=== PATIENT | female | born 1995 | race Caucasian/White ===

== ENCOUNTER 2016-10-17 13:36 | Emergency (ER) | payer MEDICAID ==
[~2016-10-17] VITALS: Ht 162.6 cm; Wt 54.8 kg
[~2016-10-17 13:36] MED LIST: DOCU-30 PO; IBUP-1222 PO; OXYC-302 PO; PREN1TAB27 PO
[2016-10-17 14:47] LABS: BLOOD UREA NITROGEN 10 mg/dL (7-18)
[2016-10-17] MEDS ORDERED: OMNIPAQUE 350 MG/ML, 100ML BOTTLE ONE (18:22)
[2016-10-17 19:05] VITALS: BP 121/61
== END 2016-10-17 19:07 | disposition home or self-care (01) ==
LOC: ED 14:32
DX: R06.00 Dyspnea, unspecified (principal)
CPT/HCPCS: 36415; 71020; 71275; 80048; 82040; 84703; 85025; 85379; 93005; 99285; Q9967

== ENCOUNTER 2017-04-08 06:12 | Inpatient (IN) | payer MEDICAID ==
[2017-04-08] VITALS (12 sets, daily range): BP systolic 100–123; BP diastolic 54–82
[~2017-04-08] VITALS: Ht 167.6 cm; Wt 65.0 kg
[~2017-04-08 06:12] MED LIST changes: +DOCU-131 PO; -DOCU-30 PO
[2017-04-08] MEDS ORDERED: OXYTOCIN 30U/ 0.9% NaCL 500ML 500 ML IV SCH (06:31)
[2017-04-08] MEDS ORDERED: LACTATED RINGERS 1,000 ML IV SCH ×3 (06:31→12:04)
[2017-04-08] MEDS ORDERED: NEWBORN KIT ONE (06:32)
[2017-04-08] MEDS ORDERED: METOCLOPRAMIDE 5 MG/ML, 2ML ONE (06:32)
[2017-04-08] MEDS ORDERED: OXYTOCIN 30U/ 0.9% NaCL 500ML 500 ML ONE (06:32)
[2017-04-08] MEDS ORDERED: SODIUM CITRATE/CITRIC ACID 30 ML UDC ONE ×2 (06:32→06:33)
[2017-04-08 06:37] LABS: DAU SCREEN DISCLAIMER
[2017-04-08] MEDS ORDERED: LACTATED RINGERS 1,000 ML IVBOLUS ONE (07:00)
[2017-04-08] MEDS ORDERED: METOCLOPRAMIDE 5 MG/ML, 2ML IV ONE (07:00)
[2017-04-08] MEDS ORDERED: SODIUM CITRATE/CITRIC ACID 30 ML UDC PO ONE (07:00)
[2017-04-08] MEDS ORDERED: PREN1TAB60 PO (07:17)
[2017-04-08 07:36] LABS: HEMOGLOBIN 7.3 g/dL (11.7-16.4); WHITE BLOOD COUNT 5.9 x10^3/uL (4.5-13.2)
[2017-04-08 07:43] LABS: HEMATOCRIT 22.2 % (34.6-47.8)
[2017-04-08 07:54] LABS: ANISOCYTOSIS 1+; MICROCYTOSIS 2+
[2017-04-08 07:55] LABS: HYPOCHROMIA 1+; POLYCHROMASIA 1+
[2017-04-08 07:56] LABS: OVALOCYTES 1+
[2017-04-08] MEDS ORDERED: SODIUM CHLORIDE 0.9% 1,000 ML IV SCH (09:00)
[2017-04-08] MEDS ORDERED: DIPHENHYDRAMINE 50 MG/ML, 1ML ONE (09:08)
[2017-04-08] MEDS ORDERED: ACETAMINOPHEN 325 MG TABLET ONE ×2 (09:09→15:00)
[2017-04-08] MEDS ORDERED: ACETAMINOPHEN 325 MG TABLET PO ONE (09:30)
[2017-04-08] MEDS ORDERED: DIPHENHYDRAMINE 50 MG/ML, 1ML IVPush ONE (09:30)
[2017-04-08] MEDS ORDERED: FENTANYL PF 100 MCG/2ML ONE ×3 (09:43→13:41)
[2017-04-08] MEDS ORDERED: FENTANYL PF 100 MCG/2ML IVPush PRN (10:00)
[2017-04-08] MEDS ORDERED: ONDANSETRON 2MG/ML, 2ML ONE (10:19)
[2017-04-08] MEDS ORDERED: OXYTOCIN 10 UNITS/ML, 1ML ONE (10:19)
[2017-04-08] MEDS ORDERED: CEFAZOLIN 1,000 MG ONE (10:19)
[2017-04-08] MEDS ORDERED: HYDROmorphone 2 MG/ML, 1ML ONE (10:20)
[2017-04-08] MEDS: OXYTOCIN 30U/ 0.9% NaCL 500ML 500 ML IV SCH ×2 (12:04→22:04)
[2017-04-08] MEDS: LACTATED RINGERS 1,000 ML IV SCH ×2 (12:04→20:41)
[2017-04-08] MEDS ORDERED: DOCUSATE 100 MG CAPSULE PO PRN (12:30)
[2017-04-08] MEDS ORDERED: SIMETHICONE 80 MG CHEW TAB PO PRN (12:30)
[2017-04-08] MEDS ORDERED: FENTANYL PF 100 MCG/2ML IV PRN (12:30)
[2017-04-08] MEDS ORDERED: BISACODYL 10 MG SUPP PR PRN (12:30)
[2017-04-08] MEDS ORDERED: OXYcodone 5 MG/5 ML ORAL.SOL UDC PO PRN (12:30)
[2017-04-08] MEDS ORDERED: METHYLERGONOVINE 0.2 MG/ML IM PRN (12:30)
[2017-04-08] MEDS ORDERED: OXYcodone IR 5MG TABLET PO PRN (12:30)
[2017-04-08] MEDS: ACETAMINOPHEN 325 MG TABLET PO SCH ×3 (12:30→20:41)
[2017-04-08] MEDS ORDERED: ONDANSETRON 2MG/ML, 2ML IV PRN (12:30)
[2017-04-08] MEDS ORDERED: morphine SULFATE 10 MG/ML, 1ML IVPush PRN ×2 (12:30)
[2017-04-08] MEDS ORDERED: MISOPROSTOL 200 MCG TABLET PR PRN (12:30)
[2017-04-08] MEDS ORDERED: CALCIUM CARBONATE 500 MG TAB.CHEW PO PRN (12:30)
[2017-04-08] MEDS ORDERED: OXYcodone 5 MG/5 ML ORAL.SOL UDC ONE (12:31)
[2017-04-08] MEDS ORDERED: KETOROLAC 30 MG/1 ML ONE (12:32)
[2017-04-08] MEDS: KETOROLAC 30 MG/1 ML IV SCH ×2 (12:34→20:41)
[2017-04-08] MEDS ORDERED: OXYcodone IR 5MG TABLET ONE (16:02)
[2017-04-08] MEDS: OXYcodone IR 5MG TABLET PO PRN ×2 (16:04→20:42)
[2017-04-08 16:15] LABS: HEMATOCRIT 27.2 % (34.6-47.8); HEMOGLOBIN 8.8 g/dL (11.7-16.4); WHITE BLOOD COUNT 14.3 x10^3/uL (4.5-13.2)
[2017-04-08 16:56] LABS: ANISOCYTOSIS 2+; MICROCYTOSIS 2+
[2017-04-08 16:57] LABS: HYPOCHROMIA 1+; OVALOCYTES 1+; POLYCHROMASIA 1+
[2017-04-08 16:58] LABS: LARGE PLATELETS 1+
[2017-04-09 00:09] VITALS: BP 104/51
[2017-04-09] MEDS: OXYcodone IR 5MG TABLET PO PRN ×5 (01:09→22:00)
[2017-04-09 02:01] VITALS: BP 99/57
[2017-04-09] MEDS: KETOROLAC 30 MG/1 ML IV SCH ×2 (04:15→10:23)
[2017-04-09] MEDS: ACETAMINOPHEN 325 MG TABLET PO SCH ×4 (04:15→23:20)
[2017-04-09 04:25] VITALS: BP 100/55
[2017-04-09] MEDS: LACTATED RINGERS 1,000 ML IV SCH ×2 (05:21→15:28)
[2017-04-09 05:41] LABS: HEMATOCRIT 25.2 % (34.6-47.8); HEMOGLOBIN 8.2 g/dL (11.7-16.4); WHITE BLOOD COUNT 9.1 x10^3/uL (4.5-13.2)
[2017-04-09 06:50] VITALS: BP 99/68
[2017-04-09] MEDS: OXYTOCIN 30U/ 0.9% NaCL 500ML 500 ML IV SCH (07:36)
[2017-04-09] MEDS: PRENATAL VIT/IRON/FA 1 EACH TABLET PO SCH (07:47)
[2017-04-09] MEDS: IBUPROFEN 600 MG TABLET PO SCH ×2 (12:58→17:29)
[2017-04-09 15:59] VITALS: BP 107/67
[2017-04-09] MEDS: FERROUS GLUCONATE 324 MG TABLET PO SCH (17:29)
[2017-04-09 18:30] VITALS: BP 105/65
[2017-04-10] MEDS: IBUPROFEN 600 MG TABLET PO SCH ×2 (00:57→06:13)
[2017-04-10 01:25] VITALS: BP 109/69
[2017-04-10] MEDS: OXYcodone IR 5MG TABLET PO PRN ×2 (02:14→06:13)
[2017-04-10] MEDS: LACTATED RINGERS 1,000 ML IV SCH (04:04)
[2017-04-10] MEDS: ACETAMINOPHEN 325 MG TABLET PO SCH (05:17)
[2017-04-10] MEDS: FERROUS GLUCONATE 324 MG TABLET PO SCH (08:14)
[2017-04-10] MEDS: PRENATAL VIT/IRON/FA 1 EACH TABLET PO SCH (08:14)
[2017-04-10 08:35] VITALS: BP 114/70
[2017-04-10] MEDS ORDERED: IBUP-1222 PO (10:23)
[2017-04-10] MEDS ORDERED: DOCU-131 PO (10:24)
[2017-04-10] MEDS ORDERED: OXYC-302 PO (10:26)
[2017-04-10] MEDS ORDERED: FERR324T8 PO (10:28)
[2017-04-10 10:44] VITALS: BP 119/79
== END 2017-04-10 11:06 | disposition home or self-care (01) | DRG 766 ==
LOC: LDOP 06:12 → LDIP 06:36 → 4NOR 17:45
PROVIDERS: ADMIT Obstetrics & Gynecology; ATTEND Obstetrics & Gynecology
PROC: 10D00Z1 Extraction of Products of Conception, Low, Open Approach (ICD-10-PCS; principal; 2017-04-08)
PROC: 30233N1 Transfusion of Nonautologous Red Blood Cells into Peripheral Vein, Percutaneous Approach (ICD-10-PCS; 2017-04-08)
DX: O34.211 Maternal care for low transverse scar from previous cesarean delivery (principal); D50.9 Iron deficiency anemia, unspecified; O99.344 Other mental disorders complicating childbirth; O99.02 Anemia complicating childbirth; F31.9 Bipolar disorder, unspecified; Z3A.38 38 weeks gestation of pregnancy; Z80.8 Family history of malignant neoplasm of other organs or systems; Z37.0 Single live birth; Z82.49 Family history of ischemic heart disease and other diseases of the circulatory system
CPT/HCPCS: 36415; 80307; 81001; 85025; 86850; 86870; 86900; 86922; 86923; 87077; 87086; 87186; 88307; J0690; J1170; J1885; J2405; J3010; G0479; J1200; J2590; J2765; J7030; J7120; P9016

== ENCOUNTER 2018-11-11 04:29 | Emergency (ER) | payer MEDICAID ==
[~2018-11-11] VITALS: Ht 162.6 cm; Wt 70.5 kg
[~2018-11-11 04:29] MED LIST changes: +FERR324T8 PO; +PREN1TAB60 PO
[2018-11-11] MEDS ORDERED: ACETAMINOPHEN 325 MG TABLET ONE (04:51)
--- NOTE | 2018-11-11 04:57 | NUR ---
PT HERE FOR GRAVES, SORE THROAT AND INSOMNIA. VSS. PT MEDICATED WITH TYLENOL. WAITING FOR LABS TO RESULT. CALL LIGHT IN REACH
[2018-11-11] MEDS ORDERED: ACETAMINOPHEN 325 MG TABLET PO ONE (05:00)
--- NOTE | 2018-11-11 06:16 | NUR ---
Patient given discharge instructions and they have confirmed that they understand the instructions. Patient ambulatory with steady gait.
[2018-11-11 06:17] VITALS: BP 101/72
== END 2018-11-11 06:19 | disposition home or self-care (01) ==
LOC: ED 05:13
DX: J02.8 Acute pharyngitis due to other specified organisms (principal); B97.89 Other viral agents as the cause of diseases classified elsewhere
CPT/HCPCS: 36415; 86308; 87081; 87880; 99283

== ENCOUNTER 2019-07-09 14:18 | Emergency (ER) | payer MEDICAID ==
--- NOTE | 2019-07-09 14:39 | NUR ---
TASK RN: PER BOAT MASTER CAM Lion, PT WAS CALLED FOR TRIAGE 2 TIMES PRIOR TO BEING CALLED AT THIS TIME. NO ANSWER.
== END 2019-07-09 14:46 | disposition left against medical advice (07) ==
LOC: ED 14:40
DX: R10.2 Pelvic and perineal pain (principal); Z53.21 Procedure and treatment not carried out due to patient leaving prior to being seen by health care provider

== ENCOUNTER 2019-10-28 18:34 | Emergency (ER) | payer MEDICAID, OTHER ==
[~2019-10-28] VITALS: Ht 162.6 cm; Wt 68.1 kg
[2019-10-28] MEDS ORDERED: ONDANSETRON 2MG/ML, 2ML ONE (19:20)
[2019-10-28] MEDS ORDERED: MORPHINE SULFATE 4 MG/ML, 1ML ONE ×2 (19:21→20:43)
[2019-10-28] MEDS: MORPHINE SULFATE 4 MG/ML, 1ML IVPush PRN ×2 (19:22→20:45)
[2019-10-28 19:27] LABS: BASOPHILS # (AUTO) 0.03 x10^3/uL (0-0.1); BASOPHILS % (AUTO) 0 % (0-1); EOSINOPHILS # (AUTO) 0.07 x10^3/uL (0-0.4); EOSINOPHILS % (AUTO) 1 % (1-7); LYMPHOCYTES # (AUTO) 2.38 x10^3/uL (1-3.4); LYMPHOCYTES % (AUTO) 30 % (22-44); MD NO; MEAN CORPUSCULAR HEMOGLOBIN 23.1 pg (27.0-34.8); MEAN CORPUSCULAR HGB CONC 32.1 g/dL (32.4-35.8); MEAN CORPUSCULAR VOLUME 71.8 fL (80-100); MEAN PLATELET VOLUME 8.8 fL (7.4-10.4); MONOCYTES # (AUTO) 0.55 x10^3/uL (0.2-0.8); MONOCYTES % (AUTO) 7 % (2-9); NEUTROPHILS # (AUTO) 4.84 x10^3/uL (1.8-6.8); NEUTROPHILS % (AUTO) 62 % (42-75); PLATELET COUNT 294 x10^3/uL (130-400); RED BLOOD COUNT 4.96 x10^6/uL (3.82-5.3); RED CELL DISTRIBUTION WIDTH 16.2 % (9.6-15.2)
[2019-10-28] MEDS ORDERED: ONDANSETRON 2MG/ML, 2ML IVPush ONE (19:30)
[2019-10-28] MEDS ORDERED: SODIUM CHLORIDE FLUSH 10ML SYR IVF ONE (19:30)
[2019-10-28 19:31] LABS: ANION GAP 4 mmol/L (5-15); CHLORIDE 109 mmol/L (98-107)
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
[2019-10-28] MEDS ORDERED: OMNIPAQUE 350 MG/ML, 100ML BOTTLE ONE (20:30)
--- NOTE | 2019-10-28 20:51 | NUR ---
C SPINE IMMOBILIZER REMOVED BY PROVIDER.
[2019-10-28 21:49] VITALS: BP 106/64
== END 2019-10-28 22:44 | disposition home or self-care (01) ==
LOC: ED 19:47
DX: S06.0X1A Concussion with loss of consciousness of 30 minutes or less, initial encounter (principal); S16.1XXA Strain of muscle, fascia and tendon at neck level, initial encounter; S39.012A Strain of muscle, fascia and tendon of lower back, initial encounter; S20.212A Contusion of left front wall of thorax, initial encounter; S20.211A Contusion of right front wall of thorax, initial encounter; S80.01XA Contusion of right knee, initial encounter; S00.31XA Abrasion of nose, initial encounter; S00.81XA Abrasion of other part of head, initial encounter; S20.112A Abrasion of breast, left breast, initial encounter; V47.0XXA Car driver injured in collision with fixed or stationary object in nontraffic accident, initial encounter; W22.10XA Striking against or struck by unspecified automobile airbag, initial encounter; Y93.89 Activity, other specified; Y92.488 Other paved roadways as the place of occurrence of the external cause; Y99.8 Other external cause status
CPT/HCPCS: 36415; 70450; 70486; 71045; 71260; 72072; 72110; 72125; 73564; 74177; 80048; 82040; 84703; 85025; 96374; 96375; 96376; 99285; J2270; J2405; Q9967

== ENCOUNTER 2020-02-28 19:08 | Emergency (ER) | payer MEDICAID, OTHER ==
[~2020-02-28] VITALS: Ht 165.1 cm; Wt 65.3 kg
[2020-02-28 19:36] VITALS: BP 131/81
--- NOTE | 2020-02-28 19:39 | NUR ---
PROGRAM MEDICAL DIRECTOR: PT PROVIDED WITH URINE CUP AND INSTRUCTED ON HOW TO OBTAIN A SPECIMEN.
--- NOTE | 2020-02-28 19:44 | NUR ---
SEWAGE PLANT ATTENDANT: URINE SAMPLE PROVIDED, LABELED AND SENT TO LAB
[2020-02-28 20:23] LABS: MICROSCOPIC INDICATED
[2020-02-28 20:32] LABS: BASOPHILS % (AUTO) 1 % (0-1); EOSINOPHILS % (AUTO) 0 % (1-7); LYMPHOCYTES % (AUTO) 38 % (22-44); MEAN CORPUSCULAR HEMOGLOBIN 23.9 pg (27.0-34.8); MEAN CORPUSCULAR HGB CONC 31.5 g/dL (32.4-35.8); MEAN PLATELET VOLUME 9.3 fL (7.4-10.4); MONOCYTES % (AUTO) 7 % (2-9); NEUTROPHILS % (AUTO) 55 % (42-75); PLATELET COUNT 242 x10^3/uL (130-400); RED CELL DISTRIBUTION WIDTH 18.1 % (9.6-15.2)
[2020-02-28 20:35] LABS: MD NO
[2020-02-28 20:41] LABS: ALBUMIN 4.3 g/dL (3.4-5.0); ANION GAP 4 mmol/L (5-15); CALCIUM 9.5 mg/dL (8.5-10.1); CHLORIDE 107 mmol/L (98-107)
--- NOTE | 2020-02-28 21:50 | NUR ---
REPORT GIVEN TO ANDREIA MARIE.
[2020-02-28 21:52] LABS: CLUE CELLS NONE SEEN (NONE SEEN); WET PREP WBCS FEW (FEW)
[2020-02-28] MEDS ORDERED: metroNIDAZOLE 500 MG TABLET PO ONE (22:00)
[2020-02-28] MEDS ORDERED: CEFTRIAXONE 250 MG IM ONE (22:00)
[2020-02-28] MEDS ORDERED: AZITHROMYCIN 500 MG TABLET ONE (22:00)
[2020-02-28] MEDS ORDERED: metroNIDAZOLE 500 MG TABLET ONE (22:00)
[2020-02-28] MEDS ORDERED: AZITHROMYCIN 500 MG TABLET PO ONE (22:00)
[2020-02-28] MEDS ORDERED: LIDOCAINE-MPF 1%, 2ML ONE (22:01)
[2020-02-28] MEDS ORDERED: CEFTRIAXONE 250 MG ONE (22:01)
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
== END 2020-02-28 22:20 | disposition left against medical advice (07) ==
LOC: ED 21:50
DX: A59.01 Trichomonal vulvovaginitis (principal); R10.2 Pelvic and perineal pain; R10.31 Right lower quadrant pain; R10.32 Left lower quadrant pain
CPT/HCPCS: 36415; 76830; 80048; 81001; 82040; 84703; 85025; 87086; 87210; 87491; 87591; 87808; 96372; 99284; J0696

== ENCOUNTER 2020-03-11 10:15 | Emergency (ER) | payer MEDICAID ==
[~2020-03-11] VITALS: Ht 165.1 cm; Wt 66.4 kg
[2020-03-11 10:37] VITALS: BP 126/86
--- NOTE | 2020-03-11 11:17 | NUR ---
PT STATES SHE WANTS TO BE CHECKED FOR HIV, REPORTS SHE RECEIVED A CALL STATING SHE WAS EXPOSED.
== END 2020-03-11 11:39 | disposition left against medical advice (07) ==
LOC: ED 11:33
DX: Z11.4 Encounter for screening for human immunodeficiency virus [HIV] (principal)
CPT/HCPCS: 99281